=== PATIENT | male | born 1930 | race Caucasian/White ===

== ENCOUNTER 2017-12-08 15:23 | Inpatient (IN) ==
[2017-12-20 14:07] VITALS: BP 103/59
== END 2017-12-20 15:42 | disposition hospice, home (50) | DRG 180 ==
LOC: N.ED 15:23 → N.EDINP 18:26 → SUATTDRO 18:27 → N.5E 20:11 → N.CC 12-15 18:38 → N.5E 12-16 15:08
PROVIDERS: ADMIT Internal Medicine Geriatric Medicine; ATTEND Internal Medicine
PROC: BRONCHB (2017-12-14 07:35)